=== PATIENT | male | born 1995 | race Caucasian/White ===

== ENCOUNTER 2017-04-19 05:50 | Inpatient (IN) | payer OTHER ==
[2017-04-19] MEDS ORDERED: Ondansetron HCl/PF 4 MG/2 ML Vial ONE (06:20)
[2017-04-19 06:44] LABS: #Basophils 0.1 thou/uL (0.0-0.2); #Eosinphils 0.1 thou/uL (0.0-0.7); #Monocytes 0.3 thou/uL (0.11-0.59); #Neutrophils 8.3 thou/uL (1.40-6.50); %Eosinophils 0.8 % (0.0-10.0); %Lymphocytes 10.1 % (21.0-51.0); %Monocytes 3.3 % (0.0-10.0); Hematocrit 40.7 % (42.0-52.0); Mean Platelet Volume 6.7 fL (7.4-10.4); Red Blood Cell (RBC) Count 4.52 mill/uL (4.70-6.10); White Blood Cell (WBC) Count 9.7 thou/uL (4.8-10.8)
[2017-04-19 07:05] LABS: Lactic Acid - Sepsis 2.3 mmol/L (0.5-2.2)
[2017-04-19 07:11] LABS: ALT (SGPT) 26 U/L (8-55); AST (SGOT) 16 U/L (5-34); Alkaline Phosphatase 73 U/L (40-150); Anion Gap 14 mmol/L (10-20); BUN (Urea Nitrogen) 22 mg/dL (8.9-20.6); Bilirubin, Total 0.7 mg/dL (0.2-1.2); Calc. Creatinine Clearance 0 mL/min (70-130); Calcium 8.7 mg/dL (7.8-10.44); Carbon Dioxide 22 mmol/L (22-29); Chloride 104 mmol/L (98-107); Estimated GFR-MDRD 57; Globulin 2.9 g/dL (2.4-3.5); Lipase 31 U/L (8-78); Protein, Total 6.8 g/dL (6.0-8.3)
[2017-04-19 07:54] LABS: Bilirubin Negative (Negative); Blood, Urine Negative (Negative); Glucose, Urine (Dipstick) Negative (Negative); Ketone, Urine Negative (Negative); Nitrite Negative (Negative); Protein, Urine (Dipstick) 30 mg/dL (Neg-Trace); Urobilinogen 0.2 mg/dL (0.2-1.0)
[2017-04-19 07:56] LABS: Bacteria/HPF None Seen HPF (None Seen); Hyaline Casts/LPF 0-3 HYALINE CAST LPF (0-3 Hyaline); RBC/HPF 0-3 HPF (0-3); Squamous Epithelial None Seen HPF (0-3); WBC/HPF 0-3 HPF (0-3)
[2017-04-19] MEDS ORDERED: Acetaminophen 325 MG TAB ONE (08:28)
[2017-04-19] MEDS ORDERED: Cefepime 2 GM/10 ML SYR ONE (08:28)
--- NOTE | 2017-04-19 08:49 | RAD ---
PORTABLE CHEST: Date: 04/19/17 HISTORY: Sepsis, nausea and vomiting. FINDINGS: Lungs appear clear. No infiltrate seen. Heart and mediastinum unremarkable. IMPRESSION: No acute process identified. POS: [facility]
[2017-04-19] MEDS ORDERED: Sodium Chloride 0.9% 1,000 ML IV SCH (11:07)
[2017-04-19] MEDS ORDERED: Ondansetron HCl/PF 4 MG/2 ML Vial IVP PRN ×2 (11:07→13:26)
[2017-04-19] MEDS ORDERED: Ondansetron ODT 4 MG TAB SL PRN (11:07)
[2017-04-19] MEDS ORDERED: FLU VACC QS2017-18 36 mo. & older 0.5 ML SYRINGE IM ONE (11:15)
[2017-04-19] MEDS ORDERED: Acetaminophen 500 MG TAB PO PRN ×2 (12:01→13:26)
[2017-04-19] MEDS ORDERED: Ondansetron ODT 4 MG TAB PO PRN (13:26)
[2017-04-19] MEDS ORDERED: cloNIDine 0.1 MG TAB PO PRN (13:26)
[2017-04-19] MEDS ORDERED: Loperamide HCl 2 MG CAP PO PRN (13:26)
[2017-04-19] MEDS ORDERED: hydrALAZINE 20 MG/ML VIAL SLOW IVP PRN (13:26)
[2017-04-19] MEDS: Sodium Chloride 0.9% 1,000 ML IV SCH ×2 (13:30→23:24)
--- NOTE | 2017-04-19 14:28 | HP ---
DATE OF ADMISSION: 04/19/2017 PRIMARY CARE PROVIDER: Wild gordon. CHIEF COMPLAINT: Nausea and vomiting. HISTORY OF PRESENT ILLNESS: This is a 21-year-old male who presents to [facility] Emergency Department complaining of nausea and vomiting beginning at approximately 4 a.m. on the rodger e of admission on 04/19/2017. 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 The patient reports eating [employer] sandwich on the evening prior to this evaluation, but no specific travel history, blood in the stool or exposure. The patie nt states he works at [employer] but has not noted any new exposure history or co-workers with breanne lar symptoms. 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 Patient has remained on immunosuppressive therapy with CellCept and prednisone since t he procedure. The patient denies any history of transplant rejection or recent fever. The patient s tates he did not take any specific home remedies to relieve his symptoms and reported to the emergenc y room for evaluation. In the emergency room, patient underwent general evaluation with noted tachyc ardia up to 135 beats per minute and an elevated lactic acid level of 2.5. The patient was treated f or SIRS criteria, receiving intravenous normal saline x3 liters as well as IV cefepime 2 grams x1 dos e, Tylenol and Zofran. The patient states that his symptoms improved with current treatment and was referred to the Hospitalist Service for admission. PAST MEDICAL HISTORY: 1. Dense deposit disease. 2. Chronic kidney disease. 3. Hypertension. PAST SURGICAL HISTORY: Status post renal transplant in 2012. CURRENT MEDICATIONS: 1. Lisinopril 10 mg 1 tab p.o. daily. 2. Prednisone 10 mg one tab p.o. daily. 3. Amlodipine 10 mg one tab p.o. daily. 4. Mycophenolate 250 mg p.o. b.i.d. 5. Tacrolimus 1 mg p.o. b.i.d. ALLERGIES: VANCOMYCIN. FAMILY HISTORY: No inheritable diseases per patient report. SOCIAL HISTORY: The patient resides in the [place], [place] area. Employed with [employer]. No curre nt alcohol, tobacco or illicit drug use. Functional of all activities of daily living. REVIEW OF SYSTEMS: The following complete review of systems was negative, unless otherwise mentioned in the HPI or below: Constitutional: Weight loss or gain, ability to conduct usual activities. Skin: Rash, itching. Eyes: Double vision, pain. ENT/Mouth: Nose bleeding, neck stiffness, pain, tenderness. Cardiovascular: Palpitations, dyspnea on exertion, orthopnea. Respiratory: Shortness of breath, wheezing, cough, hemoptysis, fever or night sweats. Gastrointestinal: Poor appetite, abdominal pain, heartburn, nausea, vomiting, constipation, or diarr hea. Genitourinary: Urgency, frequency, dysuria, nocturia. Musculoskeletal: Pain, swelling. Neurologic/Psychiatric: Anxiety, depression. Allergy/Immunologic: Skin rash, bleeding tendency. Otherwise negative except as stated per HPI. PHYSICAL EXAMINATION: VITAL SIGNS: On admission, blood pressure 106/69, pulse 135, respiratory rate 18, temperature 100.1 degrees Fahrenheit, O2 saturation 98% on room air. GENERAL APPEARANCE: This is a 21-year-old male, alert and oriented x3, pleasant, conversan t, in no acute distress. HEENT: Pupils are equal, round, and reactive to light and accommodation. Extraocular muscles are in tact. No scleral icterus, no conjunctival injection. Nares patent. OP is clear. Teeth in good rep air. NECK: Supple, no cervical adenopathy, no thyromegaly, no carotid bruits, no JVD appreciated. Cervic al spine with full active and passive range of motion. No meningeal signs appreciated. CHEST: Lungs are clear to auscultation bilaterally. CARDIOVASCULAR: S1 and S2 without noted murmur. ABDOMEN: Obese, soft, nontender, nondistended. Bowel sounds are positive in all 4 quadrants. No he patosplenomegaly, no abdominal bruits, no rebound or guarding appreciated. EXTREMITIES: Warm and dry with fair turgor. No clubbing, cyanosis or asymmetric edema. Pulses are palpable distally at the dorsalis pedis, posterior tibial, and popliteal arteries bilaterally. Capil rachel refill less than 2 seconds. NEUROLOGIC: Cranial nerves II-XII are grossly intact. No focal or lateralizing signs appreciated. PERTINENT LABORATORY DATA AND X-RAY FINDINGS: Sodium 136, potassium 4.0, chloride 104, CO2 22, BUN 2 2, creatinine 1.54 with estimated GFR of 57. Lactic acid level ranged between 1.3-2.3 and calcium 8. 7. LFTs within normal limits. Albumin 3.9 and lipase 31. CBC showed white blood cell count of 9.7, hemoglobin 14, hematocrit 41, platelet count 227 with 85% neutrophilia. Urinalysis positive for pro tein. Influenza A and B antigen negative on 04/19/2017. Portable chest x-ray dated 04/19/2017 showe d no acute cardiopulmonary process. ASSESSMENT AND PLAN: 1. Systemic inflammatory response syndrome. The patient will be admitted to the medical floor. Huma pected viral etiology; however, patient with immunosuppressive therapy due to renal transplant. We w ill continue intravenous fluids with normal saline at 100 mL per hour. We will hold antibiotic thera py, pending blood and urine culture results. Patient received cefepime 2 grams x1 dose in the emerge ncy room. Continue general supportive measures. No specific focal or lateralizing signs are noted o ther than possible gastroenteritis. 2. Nausea and vomiting. Suspect secondary to gastroenteritis. Continue Zofran 4 mg IV q.6 hours p. r.n. Continue intravenous normal saline at 100 mL per hour. 3. Sinus tachycardia secondarily to #1. Continue supportive management. Intravenous fluids as outl ined previously. 4. Hypertension. We will resume home antihypertensive regimen with exception of lisinopril. Hold l isinopril x24 hours. 5. Acute kidney injury on questionable chronic kidney disease. Continue intravenous fluids as outli darren previously. Avoid nephrotoxic agents and contrast media. Repeat creatinine in the a.m. Suspect volume depletion mediated acute kidney injury. 6. Prophylaxis. Sequential compression devices while in bed. Pepcid 20 mg p.o. b.i.d. 7. Code status is FULL. Surrogate medical decision maker is patient's father.
[2017-04-19] MEDS ORDERED: Sodium Chloride 0.9% 10 ML ONE (17:25)
[2017-04-19] MEDS: Tacrolimus 1 MG CAP PO SCH (20:41)
[2017-04-19] MEDS: Famotidine 20 MG TAB PO SCH (20:43)
[2017-04-19] MEDS ORDERED: Mycophenolate 250 MG CAP PO SCH (21:00)
[2017-04-20] MEDS: Sodium Chloride 0.9% 1,000 ML IV SCH (05:29)
[2017-04-20 05:34] LABS: Anion Gap 5 mmol/L (10-20); BUN (Urea Nitrogen) 14 mg/dL (8.9-20.6); Calc. Creatinine Clearance 178 mL/min (70-130); Calcium 8.2 mg/dL (7.8-10.44); Carbon Dioxide 25 mmol/L (22-29); Chloride 108 mmol/L (98-107); Estimated GFR-MDRD 72
[2017-04-20 06:30] LABS: Mean Platelet Volume 6.9 fL (7.4-10.4); Neutrophil 67 % (42-75); Red Blood Cell (RBC) Count 3.95 mill/uL (4.70-6.10); White Blood Cell (WBC) Count 6.3 thou/uL (4.8-10.8)
[2017-04-20] MEDS ORDERED: Mycophenolate 250 MG CAP PO SCH (06:46)
[2017-04-20 08:01] VITALS: BP 110/68; TEMP 96.5
--- NOTE | 2017-04-20 08:28 | DIS ---
DATE OF ADMISSION: 04/19/2017 DATE OF DISCHARGE: 04/20/2017 DISCHARGE DIAGNOSES: 1. Acute gastroenteritis. 2. Moderate dehydration. 3. Immunosuppression due to transplant. 4. History of renal transplant. 5. Essential hypertension. CONSULTATIONS: None. PROCEDURES: None. HISTORY AND PHYSICAL: Mr. Chauhan is a 21-year-old male with history of renal transplant followed by [facility] in [place], who presented to the Emergency Department for a 1-day history of naus ea, vomiting, and fevers. In the emergency department, workup was largely negative, but given his immunosuppressed status, he w as admitted to our service. He was given a dose of cefepime in the ER, but he will not continue on antibiotics overnight. On arr ival to the floor, one loose bowel movement, but overnight has firmed up quite a bit. He has had no further nausea or diarrhea. Denies any fevers or chills. No chest pain, no shortness of breath, and was otherwise stable for discharge. Please see the history and physical and hospital course. Today, he is feeling better, he is urinating well, creatinine is slightly better. He is tolerating p .o., and is stable for discharge if he tolerates his breakfast. PHYSICAL EXAMINATION: The patient was seen and examined on the day of discharge. Discharge plan and disposition were discussed with the patient [id number] at the bedside. DISCHARGE MEDICATIONS: 1. Levofloxacin 500 mg p.o. daily, 7 tablets, new prescription sent. 2. Lisinopril 10 mg daily per home medications, but to hold until 04/22/2017. 3. Mycophenolate 750 mg p.o. b.i.d. 4. Zofran 4 mg p.o. q.4 hours p.r.n., prescription sent. 5. Prednisone 10 mg daily. 6. FK506/tacrolimus 1 mg p.o. b.i.d. 7. Amlodipine 10 mg daily. FOLLOWUP APPOINTMENTS: Transplant physician. He has an appointment in May. I asked him to cont act him ahead of time to see if they need to see him early due to this episode. The patient does not have any other regular doctor. DISCHARGE DIET: Renal. DISCHARGE ACTIVITY: As tolerated. Return to emergency department for fevers or contact his transplant service.
[2017-04-20] MEDS ORDERED: Amlodipine 10 MG TAB PO SCH (09:00)
[2017-04-20] MEDS ORDERED: predniSONE 20 MG TAB PO SCH (09:00)
[2017-04-20] MEDS: Famotidine 20 MG TAB PO SCH (09:17)
[2017-04-20] MEDS: Tacrolimus 1 MG CAP PO SCH (09:18)
--- NOTE | 2017-04-20 11:43 | PQF ---
CLINICAL DOCUMENTATION IMPROVEMENT CLARIFICATION FORM: ICD-10 Updated PLEASE DO AN ADDENDUM TO THE PROGRESS NOTE WITH ANY DOCUMENTATION UPDATES OR ADDITIONS AND CARRY THROUGH TO DC SUMMARY. THANK YOU. DATE: 04/20/17 ATTN: DR. OLVERA Please exercise your independent, professional judgment in responding to the clarification form. Clinical indicators are provided on the bottom of this form for your review Please check appropriate box(s): [ ] Sepsis due to: (Pna, UTI, gangrenous gall bladder, etc.) _acute gastroenteritis Due to: [ ] Device (please specify) [ ] Implant [ ] Graft [ ] Infusion [ ] SIRS due to non-infectious process (please specify etiology) [ ] with organ dysfunction [ ] without organ dysfunction [ x ] Severe sepsis with acute organ dysfunction of: ___lactic acidosis (Examples: respiratory failure, encephalopathy, acute kidney failure, other) [ ] Localized infection without sepsis [ ] Other diagnosis [ ] Unable to determine In addition, please specify: Present on Admission (POA): [ x ] Yes [ ] No [ ] Unable to determine For continuity of documentation, please document condition throughout progress notes and discharge summary. Thank You. CLINICAL INDICATORS - SIGNS / SYMPTOMS / LABS ER NOTE: "SEPSIS" H&P 04/19: "SYSTEMIC INFLAMMATORY RESPONSE SYNDROME" PULSE 135 TEMP 100.1 LACTIC ACID: 2.3 RISKS: GASTROENTERITIS CHRONIC KIDNEY DISEASE IMMUNOSUPPRESSIVE THERAPY TREATMENT: IV FLUIDS (ER) MAXIPIME (ER) BLOOD AND URINE CULTURES [employer] Viewer (This form is maintained as a part of the permanent medical record) 2014 [employer] All Rights Reserved [email or web address] Office: [phone] [facility]ENTER[facility]y
== END 2017-04-20 12:00 | disposition home or self-care (01) | DRG 872 ==
LOC: ERS 05:50 → 3SE 09:14
PROVIDERS: ADMIT Family Medicine; ATTEND Family Medicine
DX: A41.9 Sepsis, unspecified organism (principal); E87.2 Acidosis; N17.9 Acute kidney failure, unspecified; Z94.0 Kidney transplant status; K52.9 Noninfective gastroenteritis and colitis, unspecified; R65.20 Severe sepsis without septic shock; I10 Essential (primary) hypertension; Z79.899 Other long term (current) drug therapy; Z88.1 Allergy status to other antibiotic agents; E86.0 Dehydration
CPT/HCPCS: 36415; 71010; 80048; 80053; 81003; 81015; 83605; 83690; 85007; 85025; 85027; 87040; 87086; 96361; 96374; 96375; A4216; J0692; J2405; J7506; J7507; J7517

== ENCOUNTER 2020-07-09 15:41 | Emergency (ER) | payer BC ==
[2020-07-09 20:44] LABS: SARS-CoV-2 PCR by NAA Not Detected (NotDetected)
== END 2020-07-09 16:47 | disposition home or self-care (01) ==
LOC: ERS 15:41
DX: Z20.822 Contact with and (suspected) exposure to COVID-19 (principal)
CPT/HCPCS: 87635; 99283; U0003; U0005

== ENCOUNTER 2024-03-18 13:53 | Outpatient (CLI) | payer OTHER ==
[2024-03-18 14:52] LABS: #Basophils 0.03 10x3/uL (0.0-0.2); %Basophils 0.3 % (0.0-1.0); %Monocytes 3.8 % (0.0-10.0); %Neutrophils 79.5 % (42.0-75.0); Hematocrit 34.6 % (42.0-52.0); Hemoglobin 11.4 g/dL (14.0-18.0); Mean Corpuscular HGB CONC 32.9 g/dL (32.0-36.0); Mean Corpuscular Hemoglobin 28.7 pg (27.0-31.0); Mean Corpuscular Volume 87.2 fL (78.0-98.0); Platelet Count 253 10x3/uL (130-400); RBC Distribution Width 13.6 % (11.5-14.5); Red Blood Cell (RBC) Count 3.97 mill/uL (4.70-6.10)
[2024-03-18 15:23] LABS: ALT (SGPT) 18 U/L (8-55); AST (SGOT) 13 U/L (5-34); Alkaline Phosphatase 72 U/L (40-110); Anion Gap 19 mmol/L (10-20); BUN (Urea Nitrogen) 67 mg/dL (8.9-20.6); Bilirubin, Total 0.3 mg/dL (0.2-1.2); Calc. Creatinine Clearance 0 mL/min (70-130); Calcium 7.4 mg/dL (7.8-10.44); Carbon Dioxide 15 mmol/L (22-29); Chloride 105 mmol/L (98-107); Estimated GFR 8; Globulin 3.2 g/dL (2.4-3.5); Glucose 86 mg/dL (70-105); Potassium 2.9 mmol/L (3.5-5.1); Protein, Total 6.2 g/dL (6.0-8.3); Sodium 136 mmol/L (136-145)
[2024-03-18 15:25] LABS: Hemoglobin A1c 5.1 % (4.0-6.0)
== END 2024-03-18 13:54 | disposition home or self-care (01) ==
LOC: LABBT 13:53
PROVIDERS: ATTEND Surgery
DX: Z01.818 Encounter for other preprocedural examination (principal); E66.01 Morbid (severe) obesity due to excess calories
CPT/HCPCS: 80053; 83036; 85025; 93005; 93010

== ENCOUNTER 2024-03-26 07:06 | Inpatient (IN) | payer OTHER ==
[2024-03-18 14:20] VITALS: BMI 41.7
[2024-03-26] MEDS ORDERED: PROPOFOL 20 ML ONE (08:10)
[2024-03-26] MEDS ORDERED: Rocuronium Bromide 10 MG/ML (10ML VIAL) ONE (08:10)
[2024-03-26] MEDS ORDERED: fentaNYL PF 100 MCG/2 ML SYRINGE ONE (08:10)
[2024-03-26] MEDS ORDERED: Lidocaine 1% PF 5 ML VIAL ONE (08:10)
[2024-03-26] MEDS ORDERED: EPINEPHrine 1 MG/ML VIAL ONE (08:14)
[2024-03-26] MEDS ORDERED: Bupivacaine 0.25% HCL 30 ML VIAL ONE (08:14)
[2024-03-26] MEDS ORDERED: Heparin 5,000 UNITS/ML VIAL ONE (08:36)
[2024-03-26] MEDS ORDERED: CEFAZOLIN 2 GM VIAL ONE (09:11)
[2024-03-26] MEDS ORDERED: Hydrocortisone Sod Succ/PF 100 mg/2 ml Vial ONE (09:46)
[2024-03-26] MEDS ORDERED: PHENYLEPHRINE-NS 100 MCG/ML 10 ML SYRINGE ONE (09:46)
[2024-03-26] MEDS ORDERED: Ondansetron PF 4 MG/2 ML Vial ONE ×2 (09:49→11:14)
[2024-03-26] MEDS ORDERED: Promethazine HCl 25 MG/ML VIAL IM PRN (09:57)
[2024-03-26] MEDS ORDERED: Ondansetron HCl/PF 4 MG/2 ML Vial IVP PRN (09:57)
[2024-03-26] MEDS ORDERED: SUGAMMADEX SODIUM 200 MG/2 ML VIAL ONE (10:18)
[2024-03-26] MEDS ORDERED: fentaNYL 50 mcg/mL 1 mL Vial ONE ×3 (10:36→11:26)
[2024-03-26] MEDS ORDERED: HYDROmorphone 2 MG/ML VIAL SLOW IVP PRN (10:38)
[2024-03-26] MEDS ORDERED: Promethazine HCl 25 MG/ML VIAL ONE (10:51)
[2024-03-26] MEDS ORDERED: Labetalol HCl 100 MG/20 ML VIAL ONE (11:45)
[2024-03-26] MEDS ORDERED: Ipratropium/Albuterol 3 ML NEB NEB PRN (12:25)
[2024-03-26] MEDS ORDERED: Dextrose 5% in Water 1,000 ML IV PRN (12:25)
[2024-03-26] MEDS ORDERED: oxyCODONE 5 MG TAB PO PRN (12:25)
[2024-03-26] MEDS ORDERED: Glucagon 1 MG/ML KIT IM PRN (12:25)
[2024-03-26] MEDS ORDERED: Dextrose 50% Abboject 50 ML SYRINGE SLOW IVP PRN (12:25)
[2024-03-26] MEDS ORDERED: traMADol HCl 50 MG TAB PO PRN ×2 (12:25→12:45)
[2024-03-26] MEDS ORDERED: diphenhydrAMINE 50 MG/ML VIAL IVP PRN (12:25)
[2024-03-26 13:05] LABS: #Basophils 0.03 10x3/uL (0.0-0.2); #Eosinophils Less than 0.03 10x3/uL (0.0-0.7); %Basophils 0.2 % (0.0-1.0); %Eosinophils 0.1 % (0.0-10.0); %Lymphocytes 3.7 % (21.0-51.0); %Monocytes 1.3 % (0.0-10.0); %Neutrophils 94.2 % (42.0-75.0); Hematocrit 32.7 % (42.0-52.0); Mean Corpuscular HGB CONC 33.6 g/dL (32.0-36.0); Mean Corpuscular Hemoglobin 28.9 pg (27.0-31.0); Mean Corpuscular Volume 86.1 fL (78.0-98.0); Mean Platelet Volume 10.5 fL (7.4-10.4); Platelet Count 245 10x3/uL (130-400); RBC Distribution Width 14.2 % (11.5-14.5)
[2024-03-26 13:13] LABS: ALT (SGPT) 24 U/L (8-55); AST (SGOT) 17 U/L (5-34); Albumin 2.9 g/dL (3.5-5.0); Alkaline Phosphatase 71 U/L (40-110); Anion Gap 23 mmol/L (10-20); BUN (Urea Nitrogen) 53 mg/dL (8.9-20.6); Bilirubin, Total 0.2 mg/dL (0.2-1.2); Calc. Creatinine Clearance 25 mL/min (70-130); Calcium 7.5 mg/dL (7.8-10.44); Carbon Dioxide 13 mmol/L (22-29); Chloride 106 mmol/L (98-107); Estimated GFR 8; Glucose 138 mg/dL (70-105); Magnesium 2.1 mg/dL (1.6-2.6); Phosphorus 7.5 mg/dL (2.3-4.7); Potassium 2.7 mmol/L (3.5-5.1); Protein, Total 5.9 g/dL (6.0-8.3); Sodium 139 mmol/L (136-145)
[2024-03-26] MEDS: Sodium Bicarbonate 150 MEQ in Dextrose 5% in Water 1,000 ML IV SCH (13:24)
[2024-03-26] MEDS: Potassium Chloride 20 MEQ in Premix 1 BAG IVPB SCH ×2 (13:24→18:32)
[2024-03-26] MEDS: Acetaminophen 650 MG/20.3 ML UDCUP PO SCH (13:24)
[2024-03-26] MEDS: hydrALAZINE 20 MG/ML VIAL SLOW IVP PRN (13:36)
[2024-03-26] MEDS: Morphine 4 MG/ML VIAL SLOW IVP PRN (14:18)
[2024-03-26] MEDS: Promethazine HCl 25 MG/ML VIAL IM PRN (14:18)
[2024-03-26] MEDS: D5 1/2 NS w/20 mEq KCL 1,000 ML IV SCH (14:52)
[2024-03-26] MEDS: Potassium Chloride 20 MEQ TAB PO SCH (18:20)
[2024-03-26] MEDS: Ondansetron PF 4 MG/2 ML Vial IVP PRN (18:34)
[2024-03-26] MEDS: Mycophenolate 250 MG CAP PO SCH (20:17)
[2024-03-26] MEDS: Tacrolimus 1 MG CAP PO SCH (20:18)
[2024-03-26 20:44] LABS: Anion Gap 20 mmol/L (10-20); BUN (Urea Nitrogen) 53 mg/dL (8.9-20.6); Calc. Creatinine Clearance 24 mL/min (70-130); Calcium 7.4 mg/dL (7.8-10.44); Carbon Dioxide 13 mmol/L (22-29); Chloride 107 mmol/L (98-107); Estimated GFR 7; Glucose 136 mg/dL (70-105); Sodium 137 mmol/L (136-145)
[2024-03-27 05:21] LABS: Anion Gap 18 mmol/L (10-20); BUN (Urea Nitrogen) 49 mg/dL (8.9-20.6); Calc. Creatinine Clearance 25 mL/min (70-130); Calcium 7.5 mg/dL (7.8-10.44); Carbon Dioxide 17 mmol/L (22-29); Chloride 108 mmol/L (98-107); Estimated GFR 8; Glucose 113 mg/dL (70-105); Potassium 2.7 mmol/L (3.5-5.1); Sodium 140 mmol/L (136-145)
[2024-03-27 05:25] LABS: #Basophils Less than 0.03 10x3/uL (0.0-0.2); %Basophils 0.2 % (0.0-1.0); %Eosinophils 0.5 % (0.0-10.0); %Monocytes 6.1 % (0.0-10.0); %Neutrophils 76.8 % (42.0-75.0); Hematocrit 30.4 % (42.0-52.0); Hemoglobin 10.2 g/dL (14.0-18.0); Mean Corpuscular HGB CONC 33.6 g/dL (32.0-36.0); Mean Corpuscular Hemoglobin 28.7 pg (27.0-31.0); Mean Corpuscular Volume 85.6 fL (78.0-98.0); Mean Platelet Volume 10.6 fL (7.4-10.4); Platelet Count 231 10x3/uL (130-400); Red Blood Cell (RBC) Count 3.55 mill/uL (4.70-6.10)
[2024-03-27] MEDS: Calcitriol 0.25 MCG CAP PO SCH (08:37)
[2024-03-27] MEDS: predniSONE 5 MG TAB PO SCH (08:38)
[2024-03-27] MEDS: Pantoprazole 40 MG VIAL IVP SCH (08:38)
[2024-03-27] MEDS: Potassium Chloride 20 MEQ in Premix 1 BAG IVPB SCH (08:58)
[2024-03-27] MEDS: Sodium Bicarbonate 150 MEQ in Dextrose 5% in Water 1,000 ML IV SCH (15:38)
[2024-03-27 19:44] LABS: Anion Gap 17 mmol/L (10-20); BUN (Urea Nitrogen) 46 mg/dL (8.9-20.6); Calc. Creatinine Clearance 24 mL/min (70-130); Calcium 7.7 mg/dL (7.8-10.44); Carbon Dioxide 19 mmol/L (22-29); Chloride 108 mmol/L (98-107); Estimated GFR 7; Glucose 121 mg/dL (70-105); Potassium 3.1 mmol/L (3.5-5.1); Sodium 141 mmol/L (136-145)
[2024-03-27 20:50] VITALS: BP 141/88; TEMP 98.5
[2024-03-28] MEDS ORDERED: Potassium Citrate 10 MEQ TAB PO SCH (09:00)
[2024-03-28] MEDS ORDERED: FLU (Fluarix Triv) TS24-25(6MOS UP)/PF 45 MCG/0.5 ML Syringe IM ONE (09:00)
== END 2024-03-27 21:20 | disposition home or self-care (01) | DRG 620 ==
LOC: SDC 07:06 → SURG A 14:00 → OBSVTOIN 03-27 13:29
PROVIDERS: ADMIT Surgery; ATTEND Surgery
PROC: 0DB64Z3 Excision of Stomach, Percutaneous Endoscopic Approach, Vertical (ICD-10-PCS; principal; 2024-03-26)
PROC: 8E0W4CZ Robotic Assisted Procedure of Trunk Region, Percutaneous Endoscopic Approach (ICD-10-PCS; 2024-03-26)
DX: E66.01 Morbid (severe) obesity due to excess calories (principal); E87.20 Acidosis, unspecified; Z94.0 Kidney transplant status; N18.5 Chronic kidney disease, stage 5; I12.0 Hypertensive chronic kidney disease with stage 5 chronic kidney disease or end stage renal disease; N17.9 Acute kidney failure, unspecified; Z79.899 Other long term (current) drug therapy; I10 Essential (primary) hypertension; Z88.1 Allergy status to other antibiotic agents; Z68.41 Body mass index [BMI] 40.0-44.9, adult; E87.5 Hyperkalemia; E78.5 Hyperlipidemia, unspecified; E11.22 Type 2 diabetes mellitus with diabetic chronic kidney disease; E87.6 Hypokalemia
CPT/HCPCS: 36415; 36416; 80048; 80053; 83735; 84100; 85025; 88307; 96365; 96366; 96367; 96372; 96375; 96376; G0378; J0171; J0360; J0665; J1644; J1720; J2272; J2405; J2470; J2550; J2704; J3010; J3480; J7070; J7507; J7512; J7517; S2900